=== PATIENT | female | born 1945 | race Caucasian/White ===

== ENCOUNTER 2016-11-07 15:23 | Outpatient (CLI) | payer MEDICARE, OTHER | END 2016-11-07 15:24 | disposition EMS.NT | DX: R53.1 Weakness (principal) ==

== ENCOUNTER 2016-11-07 16:10 | Emergency (ER) | payer MEDICARE, OTHER ==
[2016-11-07 16:57] LABS: BASOPHILS % (AUTO) 0.2 %; EOSINOPHILS # (AUTO) 0.1 10^3/uL (0.0-0.7); EOSINOPHILS % (AUTO) 0.8 %; HCT - HEMATOCRIT 46.4 % (37.0-47.0); HGB - HEMOGLOBIN 15.8 g/dL (12.0-16.0); LYMPHOCYTES # (AUTO) 1.4 10^3/uL (1.5-3.5); LYMPHOCYTES % (AUTO) 13.7 %; MEAN CORPUSCULAR HEMOGLOBIN 29.3 pg (27.0-31.0); MEAN CORPUSCULAR HGB CONC 34.1 g/dL (32.0-36.0); MEAN PLATELET VOLUME 8.1 fL (7.9-10.8); MONOCYTES # (AUTO) 0.4 10^3/uL (0.0-1.0); MONOCYTES % (AUTO) 4.1 %; NEUTROPHILS # (AUTO) 8.1 10^3/uL (1.5-6.6); NEUTROPHILS % (AUTO) 81.2 %; RED CELL DISTRIBUTION WIDTH 13.2 % (12.0-15.0)
--- NOTE | 2016-11-07 17:05 | ED Physician Documentation ---
History of Present Illness - Stated complaint Stated Complaint: DIZZY - Chief complaint Chief Complaint: Neuro - History obtained from History obtained from: Patient, EMS - History of Present Illness Timing: Prior to arrival - Additonal information Additional information: The patient is a 71-year-old female who arrives via ambulance after she had a near syncopal episode while in the commissary after drinking a milkshake. She initially noticed swelling of her face and throat and then felt generally weak and lightheaded. She laid down and reports that her symptoms resolved over a period of less than one half hour. She denies any associated chest pain or shortness of breath. She reported some initial nausea, but denies vomiting. She denies headache. She currently feels well. She denies history of similar symptoms in the past. Review of Systems Constitutional: denies: Fever Eyes: denies: Irritation Ears: denies: Tinnitus/ringing Nose: denies: Congestion Throat: denies: Sore throat Cardiac: denies: Chest pain / pressure, Palpitations Respiratory: denies: Dyspnea, Cough GI: denies: Abdominal Pain, Vomiting, Diarrhea : denies: Dysuria Skin: denies: Rash Musculoskeletal: denies: Back pain, Extremity swelling Neurologic: denies: Focal weakness, Altered mental status, Headache PD PAST MEDICAL HISTORY - Past Medical History Past Medical History: Yes Cardiovascular: None Respiratory: None Endocrine/Autoimmune: HyPOthyroidism GI: None : Incontinence HEENT: None Psych: Depression, Anxiety Musculoskeletal: Osteoarthritis Derm: None - Past Surgical History Ortho: Hip replacement HEENT: Cataracts, Rhinoplasty, Tonsil/Adenoidectomy - Present Medications Home Medications: Ambulatory Orders Medication Instructions Recorded Confirmed Aspirin [Aspir 81] 81 mg PO DAILY 02/04/15 11/07/16 Cholecalciferol (Vitamin D3) 2,000 mg PO DAILY 02/04/15 11/07/16 [D3-2000] Levothyroxine [Synthroid] 100 mcg PO DAILY 02/04/15 11/07/16 [place]-3 Fatty Acids/Fish Oil [Fish 1,000 mg PO DAILY 02/04/15 11/07/16 Oil 1,000 mg Capsule] Red Yeast Rice 2,400 mg PO DAILY 02/04/15 11/07/16 Venlafaxine ER [Effexor ER] 75 mg PO DAILY 02/04/15 11/07/16 - Allergies Allergies/Adverse Reactions: Allergies Allergy/AdvReac Type Severity Reaction Status Date / Time No Known Drug Allergies Allergy Verified 02/04/15 15:07 - Living Situation Living Situation: reports: With spouse/s.o. Living Arrangement: reports: At home - Social History Does the pt smoke?: No Smoking Status: Never smoker PD ED PE NORMAL - Vitals Vital signs reviewed: Yes (initially hypertensive.) - General General: Alert and oriented X 3, Well developed/nourished - HEENT HEENT: Atraumatic, PERRL, EOMI, Pharynx benign - Neck Neck: Supple, no meningeal sign, No adenopathy, No JVD - Cardiac Cardiac: RRR, No murmur - Respiratory Respiratory: No respiratory distress, Clear bilaterally - Abdomen Abdomen: Soft, Non tender - Back Back: No CVA TTP - Derm Derm: No rash - Extremities Extremities: No edema, No calf tenderness / cord - Neuro Neuro: Alert and oriented X 3, No motor deficit, No sensory deficit, Normal speech Results - Vitals Vitals: Vital Signs - 24 hr 11/07/16 11/07/16 11/07/16 16:12 18:01 19:30 Temperature 36.6 C Heart Rate 77 77 68 Respiratory 16 16 16 Rate Blood Pressure 154/90 H 142/72 H 151/98 H O2 Saturation 98 98 96 Oxygen O2 Source Room air - EKG (time done) 17:00 Rate: Rate (enter#) (77) Rhythm: NSR [place]: Normal Intervals: Normal ID QRS: Normal Ischemia: Normal ST segments Computer interpretation: Agree with computer - Labs Labs: Laboratory Tests 11/07/16 11/07/16 11/07/16 16:33 16:33 16:33 WBC 10.0 RBC 5.40 Hgb 15.8 Hct 46.4 MCV 86.0 MCH 29.3 MCHC 34.1 RDW 13.2 Plt Count 191 MPV 8.1 Neut # 8.1 H Lymph # 1.4 L [place] # 0.4 Eos # 0.1 Baso # 0.0 Absolute Nucleated RBC 0.00 Nucleated RBCs 0.0 Sodium 142 Potassium 3.6 Chloride 107 Carbon Dioxide 27 Anion Gap 8.0 BUN 23 H Creatinine 0.8 Estimated GFR (MDRD) 70 L Glucose 112 H Calcium 9.7 Total Bilirubin 0.5 AST 19 ALT 26 Alkaline Phosphatase 73 Troponin I < 0.04 Total Protein 7.3 Albumin 4.3 Globulin 3.0 Albumin/Globulin Ratio 1.4 Lipase 38 Urine Color Urine Clarity Urine pH Ur Specific [place] Urine Protein Urine Glucose (UA) Urine Ketones Urine Occult Blood Urine Nitrite Urine Bilirubin Urine Urobilinogen Ur Leukocyte Esterase Ur Microscopic Review Urine Culture Comments 11/07/16 18:41 WBC RBC Hgb Hct MCV MCH MCHC RDW Plt Count MPV Neut # Lymph # [place] # Eos # Baso # Absolute Nucleated RBC Nucleated RBCs Sodium Potassium Chloride Carbon Dioxide Anion Gap BUN Creatinine Estimated GFR (MDRD) Glucose Calcium Total Bilirubin AST ALT Alkaline Phosphatase Troponin I Total Protein Albumin Globulin Albumin/Globulin Ratio Lipase Urine Color YELLOW Urine Clarity CLEAR Urine pH 6.0 Ur Specific [place] 1.010 Urine Protein NEGATIVE Urine Glucose (UA) NEGATIVE Urine Ketones NEGATIVE Urine Occult Blood NEGATIVE Urine Nitrite NEGATIVE Urine Bilirubin NEGATIVE Urine Urobilinogen 0.2 (NORMAL) Ur Leukocyte Esterase NEGATIVE Ur Microscopic Review NOT INDICATED Urine Culture Comments NOT INDICATED PD MEDICAL DECISION MAKING - ED course Complexity details: reviewed results, re-evaluated patient, d/w patient, d/w family ED course: The patient's presentation is significant for a near syncopal episode, associated with mild dehydration. Her presentation does not suggest an acute cardiac event and I doubt pulmonary embolus. She has been asymptomatic throughout her duration in the emergency department. Her echocardiogram is normal. CBC and urinalysis are normal. Chemistry panel is normal except for an elevated BUN to creatinine ratio, with a BUN of 23 and creatinine 0.8. Treatment in the emergency department included administration of normal saline 1 L IV. Prior to discharge she demonstrated ability to ambulate without lightheadedness or any other symptoms. I discussed with her and her the results of her workup, outpatient follow-up, as well as potentially worrisome signs or symptoms that should prompt reevaluation in the emergency department. Departure - Departure Disposition: 01 Home, Self Care Clinical Impression: Near syncope, Dehydration Condition: Stable Instructions: ED Near Syncope Unkn, ED Dehydration Follow-Up: Jenniffer Barragan ARNP [Physician No Access] - Comments: Drink plenty of fluids. Follow up with your primary physician within one to 2 weeks. Call to schedule an appointment. Return to the emergency department if you develop recurrent lightheadedness, chest pain, shortness of breath, or otherwise worsening symptoms. Discharge Date/Time: 11/07/16 19:30
[2016-11-07 17:07] LABS: ALBUMIN/GLOBULIN RATIO 1.4 (1.0-2.2); BILIRUBIN,TOTAL 0.5 mg/dL (0.2-1.0); CALCIUM 9.7 mg/dL (8.5-10.3); CREATININE 0.8 mg/dL (0.4-1.0); POTASSIUM 3.6 mmol/L (3.5-5.0); TOTAL PROTEIN 7.3 g/dL (6.7-8.2)
[2016-11-07] MEDS ORDERED: SODIUM CHLORIDE 0.9% 1,000 ML IV ONE (18:23)
[2016-11-07 19:02] LABS: BILIRUBIN,URINE NEGATIVE (NEGATIVE)
[2016-11-07 19:06] LABS: UA CHARGE (STRIP ONLY) YES; UR CULTURE IF IND NOT INDICATED
[2016-11-07 20:01] VITALS: BP 151/98
== END 2016-11-07 19:30 | disposition home or self-care (01) ==
LOC: EDUNIT# → ED 16:10
DX: E86.0 Dehydration (principal); Z79.82 Long term (current) use of aspirin
CPT/HCPCS: 36415; 80053; 81001; 81003; 83690; 84484; 85025; 87086; 93005; 93010; 99284

== ENCOUNTER 2017-11-03 10:12 | Day surgery (SDC) | payer MEDICARE, OTHER ==
[2017-11-03] MEDS ORDERED: fentaNYL 250 MCG/5 ML VIAL IVP ONE (10:13)
[2017-11-03] MEDS ORDERED: MIDAZOLAM 2 MG/2 ML VIAL IVP ONE (10:13)
[2017-11-03] MEDS ORDERED: LACTATED RINGERS 1,000 ML IV ONE ×2 (10:24→12:24)
[2017-11-03 13:45] VITALS: BP 143/85
== END 2017-11-03 10:13 | disposition home or self-care (01) ==
LOC: SDS 10:12
PROVIDERS: ATTEND Internal Medicine Gastroenterology
PROC: 0DBP8ZX Excision of Rectum, Via Natural or Artificial Opening Endoscopic, Diagnostic (ICD-10-PCS; principal; 2017-11-03 11:15)
DX: Z12.11 Encounter for screening for malignant neoplasm of colon (principal); D12.8 Benign neoplasm of rectum; K64.8 Other hemorrhoids; K57.10 Diverticulosis of small intestine without perforation or abscess without bleeding; I10 Essential (primary) hypertension; F32.9 Major depressive disorder, single episode, unspecified; F41.9 Anxiety disorder, unspecified; Z79.82 Long term (current) use of aspirin
CPT/HCPCS: 45385; J3010; J7120